=== PATIENT | male | born 2000 | race Two or more races ===

== ENCOUNTER 2025-02-25 23:44 | Inpatient (IN) | payer OTHER ==
[~2025-02-25] VITALS: Ht 190.5 cm; Wt 135.7 kg
[2025-02-26] VITALS (7 sets, daily range): BP systolic 110–120; BP diastolic 60–70; PULSE 60–70; RESP 15–19; TEMP 97.1–98.4; O2SAT 98–100
--- NOTE | 2025-02-26 00:16 | ED.PDOC ---
GI ASSESSMENT HPI Comments 24-year-old male who came to ER for abdominal pain. Patient has been having intermittent episodes of right upper quadrant abdominal pain days. Noted pain will radiate to the back and right shoulder, and associated with loss of appetite and nausea. Patient had a full meal earlier and patients RUQ pain worsened. Patient brought here for further evaluation and management. Patient has no history of abdominal surgeries. Chief Complaint: Abdominal Pain Time Seen by MD: 00:16 Reviewed Notes: Nurses Notes Allergies: Coded Allergies: NO KNOWN ALLERGIES (Unverified , 02/26/25) Information Source: Patient Mode of Arrival: EMS Timing: Days Duration: Intermittent Prehospital treatment: None Quality: Aching, Sharp Vomitus: None Stool: Normal Severity: Moderate Recent: None Recent Hx of: None Pain Location: RUQ Associated sign and symptoms: Nausea, Abdominal Pain Past Medical History PAST MEDICAL HISTORY: Denies Surgical History: Denies all surgeries Family History Family History: Reviewed,noncontributory to illness Social History Smoker: Non-Smoker Alcohol: Denies ETOH Use Drugs: Denies Drug Use Lives In: Other ([employer]) Constitutional: denies: chills, diaphoresis, fatigue, fever, malaise, sweats, weakness, others EENTM: denies: blurred vision, double vision, ear bleeding, ear discharge, ear drainage, ear pain, ear ringing, eye pain, eye redness, hearing loss, mouth pain, mouth swelling, nasal discharge, nose bleeding, nose congestion, nose pain, photophobia, tearing, throat pain, throat swelling, voice changes, others Respiratory: denies: cough, hemoptysis, orthopnea, SOB at rest, shortness of breath, SOB with excertion, stridor, wheezing, others Cardiovascular: denies: chest pain, dizzy spells, diaphoresis, Dyspnea on exertion, edema, irregular heart beat, left arm pain, lightheadedness, palpitations, PND, syncope, others Gastrointestinal: reports: abdominal pain, poor appetite; denies: abdomen distended, blood streaked bowels, constipated, diarrhea, dysphagia, difficulty swallowing, hematemesis, melena, nausea, poor fluid intake, rectal bleeding, rectal pain, vomiting, others Genitourinary: denies: burning, dysuria, flank pain, frequency, hematuria, incontinence, penile discharge, penile sore, pain, testicle pain, testicle swelling, urgency, others Neurological: denies: dizziness, fainting, headache, left sided numbness, left sided weakness, numbness, paresthesia, pre-existing deficit, right sided numbness, right sided weakness, seizure, speech problems, tingling, tremors, weakness, others Musculoskeletal: denies: back pain, gout, joint pain, joint swelling, muscle pain, muscle stiffness, neck pain, others Integumetry: denies: bruises, change in color, change in hair/nails, dryness, laceration, lesions, lumps, rash, wounds, others Allergic/Immunocompromised: denies: Difficulty Healing, Frequent Infections, Hives, Itching, others Hematologic/Lymphatic: denies: anemia, blood clots, easy bleeding, easy bruising, swollen glands, others Endocrine: denies: excessive hunger, excessive sweating, excessive thirst, excessive urination, flushing, intolerance to cold, intolerance to heat, unexplained weight gain, unexplained weight loss, others Psychiatric: denies: anxiety, bipolar disorder, depression, hopeless, panic disorder, schizophrenia, sleepless, suicidal, others Physical Exam General Appearance: Moderate Distress ( due to right upper quadrant pain concerns.), Normal HEENT: Normal ENT Inspection, Pharynx Normal, TMs Normal Neck: Full Range of Motion, Non-Tender, Normal, Normal Inspection Respiratory: Chest Non-Tender, Lungs Clear, No Accessory Muscle Use, No Respiratory Distress, Normal Breath Sounds Cardiovascular: No Edema, No JVD, No Murmur, No Gallop, Normal Peripheral Pulses, Regular Rate/Rhythm Breast Exam: Deferred Gastrointestinal: No Pulsatile Mass, Normal Bowel Sounds, RUQ, Soft, Tenderness ( Diffuse epigastric and right upper quadrant tenderness to palpation. No signs of trauma. No edema ecchymosis.) Genitalia: Deferred Pelvic: Deferred Rectal: Deferred Extremities: No calf tenderness, Normal capillary refill, Normal inspection, Normal range of motion, Non-tender, No pedal edema Musculoskeletal : Apperance: Normal Neurologic: Alert, No Motor Deficits, Normal Affect, Normal Mood, No Sensory Deficits Cerebellar Function: Normal Reflexes: Normal Skin: Dry, Normal Color, Warm Lymphatic: No Adenopathy Was a procedure done? Was a procedure done?: No GI differential Dx Differential Diagnosis: Appendicitis, Cholangitis, Cholecystitis, Constipation, Diverticular disease, Gastritis/PUD, Gastroenteritis, Pancreatitis, UTI, Urolithiasis X-Ray, Labs, Meds, VS Vital Signs Date Time Temp Pulse Resp B/P (MAP) Pulse Ox O2 Delivery O2 Flow Rate FiO2 02/26/25 02:00 60 18 115/62 (79) 97 02/26/25 00:21 61 19 98 Room Air* 0 21 21 02/26/25 00:17 98.1 61 19 110/68 (82) 97 98.1 02/25/25 23:44 98.0 75 18 106/70 (82) 97 98.0 Lab Test 02/26/25 00:10 Range/Units White Blood Count 7.3 4.4-10.8 10^3/uL Red Blood Count 4.53 4.5-5.90 10^6/uL Hemoglobin 14.6 13.5-17.5 g/dL Hematocrit 42.9 41.0-53.0 % Mean Corpuscular Volume 94.7 80.0-100.0 fL Mean Corpuscular Hemoglobin 32.2 H 28.0-32.0 pg Mean Corpuscular Hemoglobin Concent 34.0 32.0-36.0 g/dL Red Cell Distribution Width 13.5 11.8-14.3 % Platelet Count 186 140-450 10^3/uL Mean Platelet Volume 7.5 6.9-10.8 fL Neutrophils (%) (Auto) 66.4 37.0-80.0 % Lymphocytes (%) (Auto) 19.7 10.0-50.0 % Monocytes (%) (Auto) 11.9 0.0-12.0 % Eosinophils (%) (Auto) 1.7 0.0-7.0 % Basophils (%) (Auto) 0.3 0.0-2.0 % Neutrophils # (Auto) 4.8 1.6-8.6 10 ^3/uL Lymphocytes # (Auto) 1.4 0.4-5.4 10 ^3/uL Monocytes # (Auto) 0.9 0-1.3 10 ^3/uL Eosinophils # (Auto) 0.1 0-0.8 10 ^3/uL Basophils # (Auto) 0 0-0.2 10 ^3/uL Nucleated Red Blood Cells 0.0 % Sodium Level 137 136-145 mmol/L Potassium Level 3.9 3.5-5.1 mmol/L Chloride Level 105 98-107 mmol/L Carbon Dioxide Level 24 20-31 mmol/L Anion Gap 8 5-15 Blood Urea Nitrogen 15 9-23 mg/dL Creatinine 1.43 H 0.700-1.30 mg/dL Glomerular Filtration Rate Calc 71 >90 mL/min BUN/Creatinine Ratio 10.5 10.0-20.0 Serum Glucose 91 74-106 mg/dL Calcium Level 9.7 8.7-10.4 mg/dL Total Bilirubin 0.7 0.2-1.0 mg/dL Aspartate Amino Transferase (AST) 15 13-40 U/L Alanine Aminotransferase (ALT) 10 7-40 U/L Alkaline Phosphatase 74 46-116 U/L C-Reactive Protein High Sensitivity 5.54 H <1.0 mg/dL Total Protein 8.2 5.7-8.2 g/dL Albumin 4.9 H 3.2-4.8 g/dL Lipase 34 12-53 U/L Current Medications Medications (Trade) Dose Ordered Sig/Shaan Route Start Time Stop Time Status Last Admin Ketorolac Tromethamine (Toradol Injection) 30 mg ONCE ONCE IM 02/26/25 02:00 02/26/25 02:01 DC 02/26/25 02:08 X-Ray, Labs, Meds, VS Comment All studies performed the ED were evaluated by me personally. Laboratories studies, while unremarkable for WBC concerns, did have a significantly elevated C-reactive protein. Imaging studies confirmed a sludge in gallbladder as well as hepatomegaly. I am concerned this patient may develop a cholecystitis and therefore, patient will be admitted for continued evaluation of his gallbladder concerns. Urine was pending at time of this note. Patient care has been transferred to Dr. Asencio. He will evaluate urine once returned. Time of 1ST Reevaluation: 02:52 Reevaluation 1ST: Improved Consultation: PCP Patient Education/Counseling: Diagnosis, Treatment Family Education/Counseling: Diagnosis, Treatment, No Family Present Departure 1 Departure Time of Disposition: 02:53 Impression: Primary Impression: Biliary colic Additional Impressions: Hepatomegaly Elevated C-reactive protein (CRP) Disposition: ADMITTED INPATIENT Condition: Stable Discharged With: Self Critical Care Note Critical Care Time?: No Stability Stability form required: No Heart Score Heart Score: Heart Score Response (Comments) Value History N/A 0 EKG N/A 0 Age N/A 0 Risk Factors N/A 0 Troponin N/A 0 Total 0 I personally scribed for AMELIA CROCKETT PAC ([email or web address]) on 02/26/25 at 00:16. Electronically submitted by Butch Sheriff ([facility]). I personally scribed for AMELIA CROCKETT PAC ([facility] on 02/26/25 at 00:24. Electronically submitted by Butch Sheriff ([email or web address]). AMELIA CROCKETT PAC Feb 26, 2025 00:16
[2025-02-26 00:27] LABS: Basophils # (auto) 0 10 ^3/uL (0-0.2); Basophils % (auto) 0.3 % (0.0-2.0); Eosinophils # (auto) 0.1 10 ^3/uL (0-0.8); Eosinophils % (auto) 1.7 % (0.0-7.0); Hematocrit 42.9 % (41.0-53.0); Hemoglobin 14.6 g/dL (13.5-17.5); Lymphocytes # (auto) 1.4 10 ^3/uL (0.4-5.4); Lymphocytes % (auto) 19.7 % (10.0-50.0); Mean Corpuscular Hemoglobin 32.2 pg (28.0-32.0); Mean Corpuscular Volume 94.7 fL (80.0-100.0); Monocytes # (auto) 0.9 10 ^3/uL (0-1.3); Monocytes % (auto) 11.9 % (0.0-12.0); Neutrophils # (auto) 4.8 10 ^3/uL (1.6-8.6); Neutrophils % (auto) 66.4 % (37.0-80.0); Platelet Count (auto) 186 10^3/uL (140-450); Red Blood Cells 4.53 10^6/uL (4.5-5.90); Red Cell Distribution Width 13.5 % (11.8-14.3); White Blood Cell 7.3 10^3/uL (4.4-10.8)
[2025-02-26 00:45] LABS: Alanine Aminotransferase 10 U/L (7-40); Alkaline Phosphatase 74 U/L (46-116); Anion Gap 8 (5-15); Aspartate Aminotransferase 15 U/L (13-40); BUN/Creatinine Ratio 10.5 (10.0-20.0); Blood Urea Nitrogen 15 mg/dL (9-23); Calcium 9.7 mg/dL (8.7-10.4); Carbon Dioxide 24 mmol/L (20-31); Chloride 105 mmol/L (98-107); Glucose 91 mg/dL (74-106); Lipase 34 U/L (12-53); Potassium 3.9 mmol/L (3.5-5.1); Sodium 137 mmol/L (136-145); Total Protein 8.2 g/dL (5.7-8.2)
[2025-02-26 00:46] LABS: Bilirubin, Total 0.7 mg/dL (0.2-1.0)
[2025-02-26 00:49] LABS: Albumin 4.9 g/dL (3.2-4.8)
--- NOTE | 2025-02-26 01:16 | DVH ---
ABDOMINAL ULTRASOUND CLINICAL HISTORY: Right upper quadrant TECHNIQUE: Multiple grayscale and color Doppler ultrasound images were obtained of the abdomen. WID: COMPARISON: None FINDINGS: Liver and Biliary System: Homogeneous echotexture, hepatomegaly measuring 19.5 cm. No focal hepati c observations. No intrahepatic bile duct dilatation. The common duct measures 0.4 cm at the jeff hepatis. The gallbladder is normal caliber containing gallbladder sludge. Pancreas: Partially obscured due to overlying bowel gas. Kidneys: The right kidney is 10.4 cm . No hydronephrosis, increased echogenicity, shadowing stone, or focal lesion. IMPRESSION: 1. Gallbladder sludge. No acute cholecystitis or biliary ductal dilatation. 2. Hepatomegaly.
[2025-02-26 01:58] LABS: CRP High Sensitivity 5.54 mg/dL (<1.0)
[2025-02-26] MEDS: KETOROLAC TROMETH 60MG/2ML VIAL IM ONE (02:08)
[2025-02-26] MEDS ORDERED: ONDANSETRON HCL 4 MG/2 ML VIAL IV PRN (04:30)
--- NOTE | 2025-02-26 04:48 | DVHHP2 ---
History of Present Illness Reason for Visit: Abdominal pain History of Present Illness 24-year-old male presents for evaluation of abdominal pain. Patient endorses a five day history of right upper quadrant abdominal pain sharp in nature. He states that for the past two days the pain has been intermittent with associated nausea. He states his symptoms become worse after eating. He states the pain does not radiate. No fever or chills. No other acute complaints reported. Past Medical History Denies Past Surgical History Denies Family History Noncontributory Smoke: No ALCOHOL: none Drugs: None Lives: Other ( base) Review of Systems Review of Systems Review of systems are currently negative otherwise addressed in HPI. Allergies: Coded Allergies: NO KNOWN ALLERGIES (Unverified , 02/26/25) Exam Vital Signs Vital Signs Date Time Temp Pulse Resp B/P (MAP) Pulse Ox O2 Delivery O2 Flow Rate FiO2 02/26/25 04:08 58 20 109/59 (76) 98 02/26/25 00:21 Room Air* 0 21 21 02/26/25 00:17 98.1 98.1 Exam Gen: 24-year-old male in mild distress Skin: Warm, dry, normal color and texture, no rash. HEENT: Normocephalic atraumatic, mucous membranes moist and pink. Neck: Cervical and supraclavicular nodes normal without enlargement, trachea is midline, thyroid gland is normal without masses. Pulmonary: Clear to auscultation and percussion bilaterally. Cardiac: Regular rate and rhythm. No murmur Abdomen: Soft, nontender, nondistended, bowel sounds present all 4 quadrants, no guarding, no rigidity, no organomegaly. Extremities: No cyanosis, clubbing, no edema Neuro: Cranial nerves II through XII grossly intact, normal affect and speech, no focal motor deficits. Labs/Xrays ORDERING PHYSICIAN: AMELIA CROCKETT PAC PROCEDURE(s): ABDL - ABDOMEN LIMITED REASON: Right upper quadrant ORDER NUMBER(s): [id number], ACCESSION NUMBER(s): [id number] ABDOMINAL ULTRASOUND CLINICAL HISTORY: Right upper quadrant TECHNIQUE: Multiple grayscale and color Doppler ultrasound images were obtained of the abdomen. WID: COMPARISON: None FINDINGS: Liver and Biliary System: Homogeneous echotexture, hepatomegaly measuring 19.5 cm. No focal hepatic observations. No intrahepatic bile duct dilatation. The common duct measures 0.4 cm at the jeff hepatis. The gallbladder is normal caliber containing gallbladder sludge. Pancreas: Partially obscured due to overlying bowel gas. Kidneys: The right kidney is 10.4 cm . No hydronephrosis, increased echogenicity, shadowing stone, or focal lesion. IMPRESSION: 1. Gallbladder sludge. No acute cholecystitis or biliary ductal dilatation. 2. Hepatomegaly. Labs Test 02/26/25 00:10 Range/Units White Blood Count 7.3 4.4-10.8 10^3/uL Red Blood Count 4.53 4.5-5.90 10^6/uL Hemoglobin 14.6 13.5-17.5 g/dL Hematocrit 42.9 41.0-53.0 % Mean Corpuscular Volume 94.7 80.0-100.0 fL Mean Corpuscular Hemoglobin 32.2 H 28.0-32.0 pg Mean Corpuscular Hemoglobin Concent 34.0 32.0-36.0 g/dL Red Cell Distribution Width 13.5 11.8-14.3 % Platelet Count 186 140-450 10^3/uL Mean Platelet Volume 7.5 6.9-10.8 fL Neutrophils (%) (Auto) 66.4 37.0-80.0 % Lymphocytes (%) (Auto) 19.7 10.0-50.0 % Monocytes (%) (Auto) 11.9 0.0-12.0 % Eosinophils (%) (Auto) 1.7 0.0-7.0 % Basophils (%) (Auto) 0.3 0.0-2.0 % Neutrophils # (Auto) 4.8 1.6-8.6 10 ^3/uL Lymphocytes # (Auto) 1.4 0.4-5.4 10 ^3/uL Monocytes # (Auto) 0.9 0-1.3 10 ^3/uL Eosinophils # (Auto) 0.1 0-0.8 10 ^3/uL Basophils # (Auto) 0 0-0.2 10 ^3/uL Nucleated Red Blood Cells 0.0 % Sodium Level 137 136-145 mmol/L Potassium Level 3.9 3.5-5.1 mmol/L Chloride Level 105 98-107 mmol/L Carbon Dioxide Level 24 20-31 mmol/L Anion Gap 8 5-15 Blood Urea Nitrogen 15 9-23 mg/dL Creatinine 1.43 H 0.700-1.30 mg/dL Glomerular Filtration Rate Calc 71 >90 mL/min BUN/Creatinine Ratio 10.5 10.0-20.0 Serum Glucose 91 74-106 mg/dL Calcium Level 9.7 8.7-10.4 mg/dL Total Bilirubin 0.7 0.2-1.0 mg/dL Aspartate Amino Transferase (AST) 15 13-40 U/L Alanine Aminotransferase (ALT) 10 7-40 U/L Alkaline Phosphatase 74 46-116 U/L C-Reactive Protein High Sensitivity 5.54 H <1.0 mg/dL Total Protein 8.2 5.7-8.2 g/dL Albumin 4.9 H 3.2-4.8 g/dL Lipase 34 12-53 U/L Assessment/Plan Assessment/Plan Assessment Acute abdominal pain Rule out acute cholecystitis Acute kidney injury Plan Admit the patient to [facility] to the hospitalist HIDA scan pending Clear liquid diet Pain management We will consult with Surgical team pending HIDA scan results. Continue treatment per orders. Plan discussed with: Patient My Orders Orders - DELFINO MURRIETA Procedure Category Date Status Time Nm Hida Scan NM 02/26/25 Logged 04:22 Sodium Chloride 0.9% PHA 02/26/25 In Process 04:30 Clear Liq Diet DIET 02/26/25 Transmitted Breakfast Admit ADMIT 02/26/25 Transmitted 04:22 Hydrocodone-Acet PHA 02/26/25 In Process 5/325mg Tab ([place] 04:30 Ondansetron Hcl PHA 02/26/25 In Process (Zofran) 04:30 Complete Blood Count LAB 02/27/25 Verified 04:00 Comprehensive LAB 02/27/25 Verified Metabolic Panel 04:00 Condition: Stable KRISTOFER 02/26/25 In Process 04:22 Acetaminophen Tablet PHA 02/26/25 In Process (Tylenol Tablet) 04:30 Bedrest With Bathroom KRISTOFER 02/26/25 In Process Privileg 04:22 Morphine Sulfate PHA 02/26/25 In Process Injection 04:30 Date of Service: Feb 26, 2025 Billing Provider: DELFINO MURRIETA Common Visit Codes: [id number] INP/OBS CARE (MOD) DELFINO MURRIETA AGACNP Feb 26, 2025 04:48
[2025-02-26] MEDS: SODIUM CHLORIDE 0.9% 1,000 ML IV ONE (04:53)
[2025-02-26] MEDS: HYDROcodone-ACET 5/325MG TAB PO PRN (06:53)
--- NOTE | 2025-02-26 08:58 | DVH ---
CLINICAL INFORMATION: Rule out cholecystitis. TECHNIQUE: 4.3 mCi of Choletec were administered intravenously. Images of the upper abdomen were ob tained at 2 minute intervals up to a total time of 60 minutes. Delayed lateral image obtained at 65 m inutes. COMPARISON: Ultrasound dated 02/26/2025 FINDINGS: There is prompt gallbladder visualization. There is prompt excretion of activity from the biliary ductal system into the small bowel. There is no evidence of acute cholecystitis. IMPRESSION: No scintigraphic evidence of acute cholecystitis.
[2025-02-26 09:36] LABS: Urine Bacteria None Seen /hpf (None Seen)
[2025-02-26 09:40] LABS: LDL Cholesterol 70 mg/dL (< 100); Triglycerides 74 mg/dL (< 150)
[2025-02-26 09:42] LABS: Cholesterol 162 mg/dL (< 200); HDL Cholesterol 70 mg/dL (40-59)
[2025-02-26 09:45] LABS: Urine Blood Negative /uL (Negative); Urine Clarity Clear (Clear); Urine Color Yellow (Yellow); Urine Mucus FEW (None Seen); Urine Protein, UAD TRACE (Negative); Urine Specific Gravity 1.027 (1.001-1.035); Urine Squamous Epithelial Cell None Seen /hpf (<5); Urine Urobilinogen 4 mg/dL (Negative); Urine WBC 1 /HPF (0-3); Urine pH 6.5 (5.0-9.0)
[2025-02-26 09:55] LABS: Amphetamine Screen, Urine Neg (NEGATIVE)
[2025-02-26 09:56] LABS: Barbiturate Scree,Urine Neg (NEGATIVE); Benzodiazephine Screen, Urine Neg (NEGATIVE); Cannabinoid Screen, Urine Neg (NEGATIVE); Cocaine Screen, Urine Neg (NEGATIVE); Opiate Scree,Urine Neg (NEGATIVE); Phencyclidine Screen, Urine Neg (NEGATIVE)
--- NOTE | 2025-02-26 13:42 | DVHINCON2 ---
Date of service: Feb 26, 2025 Reason for Consultation right upper quadrant pain History of Present Illness History Source: Patient, MD Notes Exam Limitations: No limitations HPI 24 year old male presented to the ER for evaluation of abdominal pain associated with nausea. Patient states pain started 5 days ago to his right upper quadrant with radiation to his back. He had a similar episode a few months ago and only lasted a few hours. He states since he had no relief and pain became worse he decided to be evaluated in the ER. Onset/Duration of Abd/Flank Pa: Sudden-onset Location of Abdominal Onset: RUQ Abdominal Pain Radiation: Back Past Medical History Cardiac: No pertinent Hx Pulmonary: No pertinent Hx Central Nervous System: No pertinent Hx GI: No pertinent Hx Hemotology/Oncology: No pertinent Hx Hepatobiliary: No pertinent Hx Psychiatric: No pertinent Hx Musculoskeletal: No pertinent Hx Rheumotologic: No pertinent Hx Infectious Disease: No peritnent Hx ENT: No pertinent Hx Renal/: No pertinent Hx Endocrine: No pertinent Hx Dermatology: No pertinent Hx Past Surgical History: No pertinent Hx Patient Family History: Patient reports no known family medical history. Smoker: No Hx (Negative), Other (vape) Alocohol: Occassional Drugs: None Lives with: Other ([employer]) Review of Systems Constitutional: No symptom reported Ears, Nose, & Throat: No symptom reported Eyes: No symptom reported Pulmonary/Respiratory: No symptom reported Cardiovascular: No symptom reported Gastrointestinal: Nausea, Abdominal Pain Genitourinary: No symptom reported Musculoskeletal: No symptom reported Skin: No symptom reported Psychiatric: No symptom reported Endocrine: No symptom reported Hemotologic/Lymphatic: No symptom reported H&P Exam Vital Signs Vital Signs Date Time Temp Pulse Resp B/P (MAP) Pulse Ox O2 Delivery O2 Flow Rate FiO2 02/26/25 13:01 97.1 60 15 116/70 (85) 100 97.1 02/26/25 08:54 Room Air* 0 21 General Appeara: Well developed, Well nourished, Normal Appearance Head Exam: Normal inspection Neck Exam: Normal inspection Eye Exam: bilateral eye Normal inspection Nasal Exam: Normal inspection Pulmonary/Respiratory: Normal inspection Cardiovascular/Chest: Normal inspection, Regular rate, Normal Rhythm Abdominal Exam: Soft, Other (RUQ tender) [employer] Exam: Normal hearing, Normal speech Neuro/Mental St: Alert, Oriented Appearance: Appropriate appearance Eye contact/ Speech: Cooperative, Good eye contact, Normal speech Thoughts/Psych: Normal thought pattern Skin Exam: Normal inspection, Normal color, Warm/dry Labs/Xrays Labs Test 02/26/25 09:00 02/26/25 00:10 Range/Units Urine Color Yellow Yellow Urine Clarity Clear Clear Urine pH 6.5 5.0-9.0 Urine Specific [place] 1.027 1.001-1.035 Urine Protein Trace H Negative Urine Ketones Negative Negative Urine Blood Negative Negative /uL Urine Nitrite Negative Negative Urine Bilirubin Negative Negative Urine Urobilinogen 4 H Negative mg/dL Urine Leukocyte Esterase Negative Negative /uL Urine RBC 1 0 - 3 /hpf Urine Microscopic WBC 1 0-3 /HPF Urine Squamous Epithelial Cells None seen <5 /hpf Urine Bacteria None seen None Seen /hpf Urine Mucus Few None Seen Urine Glucose Normal Normal mg/dL Urine Opiates Screen Neg NEGATIVE Urine Fentanyl Screen Neg NEGATIVE Urine Barbiturates Screen Neg NEGATIVE Urine Phencyclidine Screen Neg NEGATIVE Urine Amphetamines Screen Neg NEGATIVE Urine Benzodiazepines Screen Neg NEGATIVE Urine Cocaine Screen Neg NEGATIVE Urine Cannabinoids Screen Neg NEGATIVE White Blood Count 7.3 4.4-10.8 10^3/uL Red Blood Count 4.53 4.5-5.90 10^6/uL Hemoglobin 14.6 13.5-17.5 g/dL Hematocrit 42.9 41.0-53.0 % Mean Corpuscular Volume 94.7 80.0-100.0 fL Mean Corpuscular Hemoglobin 32.2 H 28.0-32.0 pg Mean Corpuscular Hemoglobin Concent 34.0 32.0-36.0 g/dL Red Cell Distribution Width 13.5 11.8-14.3 % Platelet Count 186 140-450 10^3/uL Mean Platelet Volume 7.5 6.9-10.8 fL Neutrophils (%) (Auto) 66.4 37.0-80.0 % Lymphocytes (%) (Auto) 19.7 10.0-50.0 % Monocytes (%) (Auto) 11.9 0.0-12.0 % Eosinophils (%) (Auto) 1.7 0.0-7.0 % Basophils (%) (Auto) 0.3 0.0-2.0 % Neutrophils # (Auto) 4.8 1.6-8.6 10 ^3/uL Lymphocytes # (Auto) 1.4 0.4-5.4 10 ^3/uL Monocytes # (Auto) 0.9 0-1.3 10 ^3/uL Eosinophils # (Auto) 0.1 0-0.8 10 ^3/uL Basophils # (Auto) 0 0-0.2 10 ^3/uL Nucleated Red Blood Cells 0.0 % Sodium Level 137 136-145 mmol/L Potassium Level 3.9 3.5-5.1 mmol/L Chloride Level 105 98-107 mmol/L Carbon Dioxide Level 24 20-31 mmol/L Anion Gap 8 5-15 Blood Urea Nitrogen 15 9-23 mg/dL Creatinine 1.43 H 0.700-1.30 mg/dL Glomerular Filtration Rate Calc 71 >90 mL/min BUN/Creatinine Ratio 10.5 10.0-20.0 Serum Glucose 91 74-106 mg/dL Calcium Level 9.7 8.7-10.4 mg/dL Total Bilirubin 0.7 0.2-1.0 mg/dL Aspartate Amino Transferase (AST) 15 13-40 U/L Alanine Aminotransferase (ALT) 10 7-40 U/L Alkaline Phosphatase 74 46-116 U/L C-Reactive Protein High Sensitivity 5.54 H <1.0 mg/dL Total Protein 8.2 5.7-8.2 g/dL Albumin 4.9 H 3.2-4.8 g/dL Triglycerides Level 74 < 150 mg/dL Cholesterol Level 162 < 200 mg/dL LDL Cholesterol 70 < 100 mg/dL HDL Cholesterol 70 H 40-59 mg/dL Lipase 34 12-53 U/L Vitamin D 25-Hydroxy 9.6 L 30.0-100 ng/mL Assessment/Plan Problem List: (1) Right upper quadrant abdominal pain (2) Gallbladder sludge (3) Biliary colic Plan patient complaint of RUQ pain with radiation to back , when pain becomes severe it makes him nauseous similar episode a few months ago positive Crowder sign Plan: Laparoscopic possibly open cholecystectomy, tomorrow am explained operation risks and complications in detail all questions answered Plan discussed with: Patient, Other (Dr. Clifford) Visit Coding Surgery Date of Service if different f: Feb 26, 2025 Billing Provider: RAFFAELE CLIFFORD MD Surgery Visit Codes: 05889 - INP CONSULT <80 MIN LAMBERT VILLANUEVA GLASS C[employer] SUPERVISOR Feb 26, 2025 13:42
[2025-02-26 13:58] LABS: INR 1.03 (0.9-1.15); Partial Thromboplastin Time 28.6 SEC (24.5-34.5); Prothrombin Time 10.9 sec (9.3-11.8)
[2025-02-26] MEDS ORDERED: cefTRIAXone 1GM/50ML D5W 50 ML IV SCH (14:15)
--- NOTE | 2025-02-26 14:24 | DVHPNRES ---
Progress Note Date Seen: Feb 26, 2025 Resident Creating Document: SACHA JENKINS RESIDENT Has the PT tested + for MRSA If YES, has PT been informed?: No Medical Necessity Reason Pt with a Central, PICC or Fol: No Subjective Review of Systems This is a 24-year-old male with no significant past medical history of relevance. The patient presented to the ED due to acute abdominal tenderness localized in the right upper quadrant. Patient describes that since four days ago he started having a right upper quadrant tenderness rated as a 4/10 on the pain scale described as sharp in nature but that the next day worsened to a 7/10 prompting him to come to the ER. Patient denied any nausea or vomiting at that time but did stated that the pain got worse after eating meals. Patient denied alcohol, smoking or drug history. Patient states that the pain is localized in the right upper quadrant and does not radiate to any other quadrant. Patient denied fever/chills, chest pain, shortness of breath or any other symptoms at that time. Initial labs CBC and BNP were grossly unremarkable except for creatinine which was slightly elevated at 1.43 and BUN was 15. Abdominal ultrasound showed gallbladder sludge but no acute cholecystitis or biliary ductal dilation. HIDA scan was ordered which showed no evidence of acute cholecystitis. Patient was admitted for further assessment and management of cholelithiasis. Patient seen and examined at bedside. Patient is alert and oriented in person, place and time. Patient reports right upper quadrant tenderness to palpation. Upon my examination there is positive Crowder's sign. Negative McBurney sign and there is no tenderness in any other quadrant of the abdomen at this time. Patient denies fever/chills, chest pain, shortness of breath, nausea or vomiting or any other symptoms at this time. Surgery was consulted despite HIDA scan showing no evidence of acute cholecystitis since clinically patient still having right upper quadrant tenderness that worse after meals. Surgery assessed the patient and scheduled the patient for cholecystectomy tomorrow a.m.. Meanwhile we will keep the patient on IV ceftriaxone. ROS Constitutional: Denies weight loss, fever and chills. HEENT: Denies changes in vision and hearing. Respiratory: Denies shortness of breath and cough Cardiovascular: Denies chest discomfort or palpitations GI: Reports moderate to severe right upper quadrant tenderness to palpation of the abdomen. Denies nausea or vomiting : Denies dysuria and urinary frequency. Musculoskeletal: Denies myalgias and joint pain Skin: Denies rash and pruritus. Neurological: Denies dizziness, headache, vision or hearing problems Objective vital signs Vital Sign Date Time Temp Pulse Resp B/P (MAP) Pulse Ox O2 Delivery O2 Flow Rate FiO2 02/26/25 13:01 97.1 60 15 116/70 (85) 100 97.1 02/26/25 08:54 Room Air* 0 21 medications Current Medications Medications Dose Ordered Sig/Shaan Route Start Time Stop Time Status Last Admin Dose Admin Acetaminophen/ Hydrocodone Bitart 1 tab Q4HP PRN PO 02/26/25 04:30 02/26/25 06:53 1 TAB Ondansetron HCl 4 mg Q4HP PRN IV 02/26/25 04:30 Acetaminophen 650 mg Q6HP PRN PO 02/26/25 04:30 Morphine Sulfate 2 mg Q6HPRN PRN IV 02/26/25 04:30 Ceftriaxone Sodium 50 ml @ 100 mls/hr DAILY@09 IV 02/26/25 14:15 UNV Examination Physical Examination General: Patient alert and oriented in person, place and time. Patient following commands. HEENT: Normocephalic, atraumatic, moist mucous membranes Respiratory/pulmonary: Clear lungs bilaterally, no associated crackles or wheezes. Cardiovascular: Normal heart sounds S1 and S2 with no associated murmurs Abdomen: Abdomen nondistended, there is tenderness at the right upper quadrant of the abdomen with positive Crowder sign. No masses palpated at this time. Extremities: There is no peripheral edema present at the lower extremities. Peripheral Pulses: 3+ Radial (R). 3+ Radial (L). 3+ Dorsalis pedis (R). 3+ Dorsalis pedis(L) Skin: No rashes or pruritus, there is no sacral edema present at this time. Neurological: Intact cranial nerves with no focal neurologic deficits laboratory and microbiology Laboratory Tests 02/26/25 00:10 Test 02/26/25 00:10 Range/Units Serum Glucose 91 74-106 mg/dL Problem List/Assessment/Plan Problem List/Assessment/Plan Assessment/plan Acute abdominal pain located in the right upper quadrant likely due to cholelithiasis Possible Acute cholecystitis -abdominal ultrasound showed gallbladder sludge but no acute cholecystitis or biliary ductal dilation -HIDA scan showed no evidence of acute cholecystitis -start IV ceftriaxone -continue [place]/morphine for pain modulation -continue NS 0.9% at 100 cc/hour -consulted surgery despite imaging studies since the patient clinically tejeda is having positive Crowder's sign and worsening of pain after meals. -scheduled for cholecystectomy tomorrow a.m. SAMANTHA likely due to vasomotor nephropathy -initial creatinine 1.43 and BUN 15 -continue IV fluids at 100 cc/hour -monitor kidney function Vitamin-D deficiency -vitamin-D levels were very low at nine -start vitamin-D 04139 units weekly Goals of care discussed with the patient at bedside for >25min, FULL CODE Plan discussed with Dr. Coleman Plan discussed with: Patient My Orders My Orders Orders - SACHA JENKINS Procedure Category Date Status Time Communication Order ORDERS 02/26/25 Transmitted 09:14 Ceftriaxone 1gm/50ml PHA 02/26/25 Logged D5w (Rocephin) 14:15 Date of Service: Feb 26, 2025 Billing Provider: RANDI COLEMAN MD Common Visit Codes: [id number] INP/OBS CARE(HIGH) Secondary Visit Codes: [id number] CARE PLAN 30 MINUTES SACHA JENKINS Feb 26, 2025 14:24 RANDI COLEMAN MD Feb 26, 2025 16:40
[2025-02-26] MEDS: cefTRIAXone 1GM/50ML D5W 50 ML IV ONE (15:47)
[2025-02-26] MEDS: MORPHINE SULFATE INJ 2 MG/ml SYRG IV PRN (15:50)
[2025-02-26] MEDS: ERGOCALCIFEROL 50,000 UNIT(1.25MG) CAP PO SCH (15:50)
[2025-02-27] VITALS (8 sets, daily range): BP systolic 104–122; BP diastolic 51–72; PULSE 56–92; RESP 18–21; TEMP 97.3–98.1; O2SAT 95–100
[2025-02-27] MEDS: ceFAZolin 2 GM/D5W50ml 50 ML IV ONE (06:20)
[2025-02-27] MEDS: ACETAMINOPHEN IV 1000 MG/100ML (10MG/ML) IV ONE (06:50)
[2025-02-27] MEDS: CELECOXIB 100 MG CAP ONE (06:50)
[2025-02-27] MEDS: GABAPENTIN 300 MG CAP PO ONE (06:50)
[2025-02-27] MEDS: BUPIVACAINE 0.25% INJ 50ML VIAL ONE (06:55)
[2025-02-27] MEDS: LIDOCAINE W/ EPINEPHRINE 1% 20ML VIAL ONE (06:55)
[2025-02-27] MEDS: ACETAMINOPHEN IV 100 ML IV ONE (06:56)
[2025-02-27] MEDS: GABAPENTIN 300 MG CAP ONE (06:56)
[2025-02-27] MEDS: CELECOXIB 100 MG CAP PO ONE (07:00)
[2025-02-27] MEDS ORDERED: SUGAMMADEX 200mg/2ml Vial (100MG/ML) IV ONE (07:02)
[2025-02-27] MEDS ORDERED: PROPOFOL 10 MG/ML 20 ML IV ONE (07:02)
[2025-02-27] MEDS ORDERED: DexAMETHasone SOD PHOS 10MG/1ML VIAL INJ ONE (07:02)
[2025-02-27] MEDS ORDERED: GLYCOPYRROLATE 0.2 MG/ML 1ML VIAL ONE (07:02)
[2025-02-27] MEDS ORDERED: LIDOCAINE 2% (LOCAL ANESTH.) PF 5ml SDV ONE (07:02)
[2025-02-27] MEDS ORDERED: KETOROLAC TROMETH 30 MG/ML 1ML VIAL ONE (07:02)
[2025-02-27] MEDS ORDERED: ONDANSETRON HCL 4 MG/2 ML VIAL ONE (07:02)
[2025-02-27] MEDS ORDERED: ROCURONIUM 10MG/ML 10ML VIAL IV ONE (07:02)
[2025-02-27] MEDS ORDERED: LIDOCAINE HCL 2% TOP JELLY 5ML TOP ONE (07:02)
[2025-02-27] MEDS ORDERED: KETAMINE 50mg/ML 1ml syringe ONE (07:04)
[2025-02-27] MEDS ORDERED: fentaNYL CITRATE 100 MCG/2 ML VL ONE (07:05)
[2025-02-27] MEDS ORDERED: ceFAZolin 1GM VL ONE (07:20)
[2025-02-27] MEDS ORDERED: ePHEDrine SULFATE 50 MG/ML AMP ONE (07:40)
[2025-02-27] MEDS ORDERED: ONDANSETRON HCL 4 MG/2 ML VIAL IV PRN ×2 (08:30→08:45)
[2025-02-27] MEDS: D5W/SOD CHL 0.45%/KCL 20MEQ 1,000 ML IV SCH (08:30)
[2025-02-27] MEDS ORDERED: MORPHINE SULFATE INJ 2 MG/ml SYRG IV PRN (08:30)
[2025-02-27] MEDS ORDERED: fentaNYL CITRATE 100 MCG/2 ML VL IV PRN (08:45)
[2025-02-27] MEDS ORDERED: ePHEDrine SULFATE 50 MG/ML AMP IV PRN (08:45)
[2025-02-27] MEDS: oxyCODONE HCL 5MG TAB PO ONE (08:45)
[2025-02-27] MEDS ORDERED: hydrALAZINE HCL 20 MG/ML VL IV PRN (08:45)
[2025-02-27] MEDS ORDERED: NALOXONE HCL 0.4 MG/ML VIAL IV PRN (08:45)
[2025-02-27] MEDS ORDERED: FLUMAZENIL 0.1 MG/ML INJ 10ML MDV IV PRN (08:45)
--- NOTE | 2025-02-27 08:55 | DVHOP ---
DATE OF SURGERY: 02/27/2025 PREOPERATIVE DIAGNOSES: Cholelithiasis, chronic cholecystitis and biliary colic. POSTOPERATIVE DIAGNOSES: Cholelithiasis, chronic cholecystitis and biliary colic. SURGEON: Osmin Clifford MD. TYPESETTER APPRENTICE: Lawrence Barlow. ANESTHESIA: General endotracheal. PROCEDURE: Laparoscopy, laparoscopic cholecystectomy. DESCRIPTION OF PROCEDURE: Under general endotracheal anesthesia, the patient's skin was prepped and draped. A supraumbilical incision was made and a Veress needle inserted into the peritoneal cavity by the hanging drop technique in order to establish pneumoperitoneum to 15 mmHg of pressure by insufflation with carbon dioxide. With the abdomen fully distended, the needle was removed and replaced with a 5 mm trocar port through which a 0-degree viewing laparoscope was inserted. Under direct vision, an additional 5 and 10 mm ports were inserted through the abdominal wall at the anterior axillary line at the right flank of the patient and the subxiphoid midline skin respectively. Instrumentation was then introduced. Laparoscopy was performed revealing no obvious unexpected pathology. The gallbladder was placed on tension. The cystic duct and cystic artery were meticulously dissected. They were covered by extremely thick peritoneum with evidence of past inflammation. The cystic duct and cystic artery were skeletonized and traced into the hepaticocystic triangle system to minimize the potential for inadvertent injury to the common bile duct. The cystic duct and cystic artery were then divided between metallic clips and gallbladder resected from its liver bed by electrocautery and traction. The subhepatic space was profusely irrigated. Irrigant was aspirated. Hemostasis was meticulously accomplished. At the termination of the procedure, there was no evidence of bleeding from either the cholecystectomy site or from the port sites. Instrumentation was withdrawn. The pneumoperitoneum was evacuated. Instrumentation was withdrawn. The wounds reapproximated using Monocryl sutures, Dermabond glue and Steri-Strips. The patient remained stable throughout the procedure, left the operating room following an accurate needle and sponge count. His mother, Leonie, was thoroughly informed at [phone]. MD BRIDGETTE Colmenares/ZAKI TID: [id number] RECEIPT: [id number]
[2025-02-27] MEDS: HYDROmorphone HCL 2 MG/ML VL/or syr IV PRN (09:00)
[2025-02-27] MEDS: PANTOPRAZOLE 40 MG/10 ML VIAL INJ IV SCH (10:28)
[2025-02-27] MEDS: cefTRIAXone 1GM/50ML D5W 50 ML IV SCH (10:29)
--- NOTE | 2025-02-27 13:31 | DVHPN2 ---
Subjective The patient is seen and examined at bedside. Complain of pain. Reviewed: Care Plan, H&P, Labs, Medications, Previous Orders, Radiology Changes from previous H/P or p: No Changes General: Per HPI Objective Vitals Vital Signs Date Time Temp Pulse Resp B/P (MAP) Pulse Ox O2 Delivery O2 Flow Rate FiO2 02/27/25 09:50 98.1 56 18 122/72 (89) 95 98.1 02/27/25 09:39 Room Air* 0 21 Intake/Output Intake and Output 02/27/25 07:00 Intake Total 1900 ml Balance 1900 ml Intake Oral 1850 ml IV Total 50 ml # Voids 2 General Appearance: Alert, Oriented X3, Cooperative, No acute distress HEENT: Atraumatic, PERRLA, EOMI, Mucous membr. moist/pink Neck: Supple Lungs: Clear to auscultation, Normal air movement Cardiovascular: Regular rate, Normal S1, Normal S2, No murmurs, Gallops, Rubs Abdomen: Normal bowel sounds, Soft, No tenderness Neuro: Cranial nerves 3-12 NL Psych/Mental Status: Mental status NL Medications Current Medications Medications Dose Ordered Sig/Shaan Route Start Time Stop Time Status Last Admin Dose Admin Acetaminophen/ Hydrocodone Bitart 1 tab Q4HP PRN PO 02/26/25 04:30 02/26/25 23:32 1 TAB Ondansetron HCl 4 mg Q4HP PRN IV 02/26/25 04:30 Acetaminophen 650 mg Q6HP PRN PO 02/26/25 04:30 Morphine Sulfate 2 mg Q6HPRN PRN IV 02/26/25 04:30 02/26/25 15:50 2 MG Ergocalciferol 50,000 unit Q7D PO 02/26/25 14:30 02/26/25 15:50 50,000 UNIT Ceftriaxone Sodium 50 ml @ 100 mls/hr DAILY@09 IV 02/27/25 09:00 02/27/25 10:29 100 MLS/HR Potassium Chloride/Dextrose/ Sod Cl 1,000 ml @ 120 mls/hr Q8H20M IV 02/27/25 08:30 Morphine Sulfate 2 mg Q3HPRN PRN IV 02/27/25 08:30 Ondansetron HCl 4 mg Q4HPRN PRN IV 02/27/25 08:30 Pantoprazole Sodium 40 mg DAILY IV 02/27/25 10:00 02/27/25 10:28 40 MG Laboratory Results Laboratory Tests 02/26/25 00:10 Coagulation Test 02/26/25 13:33 Prothrombin Time 10.9 sec (9.3-11.8) Prothrombin Time INR 1.03 (0.9-1.15) Activated Partial Thromboplast Time 28.6 SEC (24.5-34.5) Urinalysis Test 02/26/25 09:00 Urine Color Yellow (Yellow) Urine Clarity Clear (Clear) Urine pH 6.5 (5.0-9.0) Urine Specific [place] 1.027 (1.001-1.035) Urine Protein Trace (Negative) H Urine Ketones Negative (Negative) Urine Blood Negative /uL (Negative) Urine Nitrite Negative (Negative) Urine Bilirubin Negative (Negative) Urine Urobilinogen 4 mg/dL (Negative) H Urine Leukocyte Esterase Negative /uL (Negative) Urine RBC 1 /hpf (0 - 3) Urine Microscopic WBC 1 /HPF (0-3) Urine Squamous Epithelial Cells None seen /hpf (<5) Urine Bacteria None seen /hpf (None Seen) Urine Mucus Few (None Seen) Urine Glucose Normal mg/dL (Normal) Labs and/or images reviewed: Labs reviewed by me Assessment/Plan Assessment/Plan Acute abdominal pain located in the right upper quadrant likely due to cholelithiasis Acute cholecystitis -abdominal ultrasound showed gallbladder sludge but no acute cholecystitis or biliary ductal dilation -HIDA scan showed no evidence of acute cholecystitis -continuing IV ceftriaxone -continue [place]/morphine for pain modulation -continue NS 0.9% at 100 cc/hour -consulted surgery despite imaging studies since the patient clinically tejeda is having positive Crowder's sign and worsening of pain after meals. Status post cholecystectomy, advance diet per surgeon. SAMANTHA likely due to vasomotor nephropathy -initial creatinine 1.43 and BUN 15 -continue IV fluids at 100 cc/hour -monitor kidney function Vitamin-D deficiency -vitamin-D levels were very low at nine -start vitamin-D 17996 units weekly This medical document was created using an electronic medical record system with [employer] direct computerized dictation system. Although this document has been carefully reviewed, there may still be some phonetic and typographical errors. These areas are purely typographical due to imperfections of the software programs, and do not reflect any compromise in the patient's medical care. Plan discussed with: Patient Date of Service: Feb 27, 2025 Billing Provider: JHONY BLANCHARD MD Common Visit Codes: [id number] INP/OBS CARE(HIGH) JHONY BLANCHARD MD Feb 27, 2025 13:31
[2025-02-27 13:58] LABS: Basophils # (auto) 0 10 ^3/uL (0-0.2); Basophils % (auto) 0.1 % (0.0-2.0); Eosinophils # (auto) 0 10 ^3/uL (0-0.8); Eosinophils % (auto) 0.1 % (0.0-7.0); Hematocrit 43.5 % (41.0-53.0); Hemoglobin 14.7 g/dL (13.5-17.5); Lymphocytes # (auto) 0.3 10 ^3/uL (0.4-5.4); Mean Corpuscular Hgb Conc. 33.8 g/dL (32.0-36.0); Mean Corpuscular Volume 94.9 fL (80.0-100.0); Monocytes # (auto) 0.1 10 ^3/uL (0-1.3); Monocytes % (auto) 1.7 % (0.0-12.0); Neutrophils # (auto) 4.7 10 ^3/uL (1.6-8.6); Neutrophils % (auto) 92.1 % (37.0-80.0); Nucleated Red Blood Cells % 0.1 %; Platelet Count (auto) 205 10^3/uL (140-450); Red Blood Cells 4.59 10^6/uL (4.5-5.90); Red Cell Distribution Width 13.3 % (11.8-14.3); White Blood Cell 5.1 10^3/uL (4.4-10.8)
[2025-02-27 14:16] LABS: Alanine Aminotransferase 24 U/L (7-40); Albumin 4.5 g/dL (3.2-4.8); Alkaline Phosphatase 75 U/L (46-116); Anion Gap 9 (5-15); Aspartate Aminotransferase 60 U/L (13-40); BUN/Creatinine Ratio 9.4 (10.0-20.0); Blood Urea Nitrogen 11 mg/dL (9-23); Calcium 9.5 mg/dL (8.7-10.4); Carbon Dioxide 23 mmol/L (20-31); Chloride 104 mmol/L (98-107); Glucose 133 mg/dL (74-106); Potassium 4.3 mmol/L (3.5-5.1); Sodium 136 mmol/L (136-145); Total Protein 7.3 g/dL (5.7-8.2)
[2025-02-27 14:17] LABS: Bilirubin, Total 0.6 mg/dL (0.2-1.0)
[2025-02-28 01:00] VITALS: BP 102/41; PULSE 61; RESP 16; TEMP 97.3; O2SAT 97
[2025-02-28 05:00] VITALS: BP 98/58; PULSE 71; RESP 18; TEMP 97.6; O2SAT 95
[2025-02-28 06:34] LABS: Basophils # (auto) 0 10 ^3/uL (0-0.2); Basophils % (auto) 0.1 % (0.0-2.0); Eosinophils # (auto) 0 10 ^3/uL (0-0.8); Eosinophils % (auto) 0.6 % (0.0-7.0); Hematocrit 41.8 % (41.0-53.0); Hemoglobin 14.1 g/dL (13.5-17.5); Lymphocytes # (auto) 1.1 10 ^3/uL (0.4-5.4); Lymphocytes % (auto) 16.1 % (10.0-50.0); Mean Corpuscular Hemoglobin 31.9 pg (28.0-32.0); Mean Corpuscular Hgb Conc. 33.8 g/dL (32.0-36.0); Mean Corpuscular Volume 94.4 fL (80.0-100.0); Monocytes # (auto) 0.6 10 ^3/uL (0-1.3); Monocytes % (auto) 8.7 % (0.0-12.0); Neutrophils % (auto) 74.5 % (37.0-80.0); Platelet Count (auto) 209 10^3/uL (140-450); Red Blood Cells 4.43 10^6/uL (4.5-5.90); White Blood Cell 6.7 10^3/uL (4.4-10.8)
[2025-02-28 06:47] LABS: Chloride 106 mmol/L (98-107); Potassium 3.5 mmol/L (3.5-5.1); Sodium 138 mmol/L (136-145)
[2025-02-28 06:48] LABS: Anion Gap 9 (5-15); Carbon Dioxide 23 mmol/L (20-31)
[2025-02-28 06:49] LABS: Calcium 9.5 mg/dL (8.7-10.4)
[2025-02-28 06:53] LABS: Glucose 90 mg/dL (74-106)
[2025-02-28 06:54] LABS: BUN/Creatinine Ratio 6.6 (10.0-20.0)
[2025-02-28 06:56] LABS: Bilirubin, Total 0.6 mg/dL (0.2-1.0); Blood Urea Nitrogen 7 mg/dL (9-23)
[2025-02-28] MEDS: metroNIDAZOLE 500MG/100ML 100 ML IV SCH (08:30)
[2025-02-28 09:00] VITALS: BP 115/58; PULSE 60; RESP 17; TEMP 97.7; O2SAT 100
--- NOTE | 2025-02-28 10:46 | DVHPN2 ---
Progress Note Date Seen: Feb 28, 2025 Has the PT tested + for MRSA If YES, has PT been informed?: No Medical Necessity Reason Pt with a Central, PICC or Fol: No Objective vital signs Vital Sign Date Time Temp Pulse Resp B/P (MAP) Pulse Ox O2 Delivery O2 Flow Rate FiO2 02/28/25 09:21 60 17 115/58 02/28/25 09:00 97.7 100 97.7 02/28/25 08:00 Room Air* 0 21 Total Intake and Output 02/27/25 02/27/25 02/28/25 14:59 22:59 06:59 Intake Total 50 ml 500 ml 100 ml Output Total 900 ml Balance 50 ml -400 ml 100 ml medications Current Medications Medications Dose Ordered Sig/Shaan Route Start Time Stop Time Status Last Admin Dose Admin Acetaminophen/ Hydrocodone Bitart 1 tab Q4HP PRN PO 02/26/25 04:30 02/27/25 20:54 1 TAB Ondansetron HCl 4 mg Q4HP PRN IV 02/26/25 04:30 Acetaminophen 650 mg Q6HP PRN PO 02/26/25 04:30 Morphine Sulfate 2 mg Q6HPRN PRN IV 02/26/25 04:30 02/28/25 09:21 2 MG Ergocalciferol 50,000 unit Q7D PO 02/26/25 14:30 02/26/25 15:50 50,000 UNIT Ceftriaxone Sodium 50 ml @ 100 mls/hr DAILY@09 IV 02/27/25 09:00 02/28/25 09:20 100 MLS/HR Potassium Chloride/Dextrose/ Sod Cl 1,000 ml @ 120 mls/hr Q8H20M IV 02/27/25 08:30 02/28/25 01:30 120 MLS/HR Morphine Sulfate 2 mg Q3HPRN PRN IV 02/27/25 08:30 Ondansetron HCl 4 mg Q4HPRN PRN IV 02/27/25 08:30 Pantoprazole Sodium 40 mg DAILY IV 02/27/25 10:00 02/28/25 09:20 40 MG Metronidazole 100 ml @ 100 mls/hr Q8HR IV 02/28/25 08:30 laboratory and microbiology Laboratory Tests 02/28/25 05:21 Test 02/28/25 05:21 Range/Units Serum Glucose 90 74-106 mg/dL Problem List/Assessment/Plan Problem List/Assessment/Plan 02/28/25 PATIENT SEEN BY LAMBERT VILLANUEVA, DOING WELL, WOUNDS CLEANA AND WELL APPROXIMATED, TOLERATING PO LIQUIDS, LABS REVIEWED, DC TOMORROW Plan discussed with: Patient RAFFAELE CROWDER MD Feb 28, 2025 10:46
--- NOTE | 2025-02-28 10:54 | DVHPN2 ---
Subjective Date Seen: Feb 28, 2025 Post op day Post op day: 1 Patient reports: Other (right side abdominal pain, improving better today than yesterday ) General: Normal HNT: Normal Cardiovascular: Normal Respiratory: Normal Gastrointestinal: Normal Genitourinary: Normal Musculoskeletal: Normal Neurological: Normal Objective Vitals Vital Sign Date Time Temp Pulse Resp B/P (MAP) Pulse Ox O2 Delivery O2 Flow Rate FiO2 02/28/25 09:21 60 17 115/58 02/28/25 09:00 97.7 100 97.7 02/28/25 08:00 Room Air* 0 21 Total Intake and Output 02/27/25 02/27/25 02/28/25 15:00 23:00 07:00 Intake Total 50 ml 500 ml 100 ml Output Total 900 ml Balance 50 ml -400 ml 100 ml Medications Current Medications Medications Dose Ordered Sig/Shaan Route Start Time Stop Time Status Last Admin Dose Admin Acetaminophen/ Hydrocodone Bitart 1 tab Q4HP PRN PO 02/26/25 04:30 02/27/25 20:54 1 TAB Ondansetron HCl 4 mg Q4HP PRN IV 02/26/25 04:30 Acetaminophen 650 mg Q6HP PRN PO 02/26/25 04:30 Morphine Sulfate 2 mg Q6HPRN PRN IV 02/26/25 04:30 02/28/25 09:21 2 MG Ergocalciferol 50,000 unit Q7D PO 02/26/25 14:30 02/26/25 15:50 50,000 UNIT Ceftriaxone Sodium 50 ml @ 100 mls/hr DAILY@09 IV 02/27/25 09:00 02/28/25 09:20 100 MLS/HR Potassium Chloride/Dextrose/ Sod Cl 1,000 ml @ 120 mls/hr Q8H20M IV 02/27/25 08:30 02/28/25 01:30 120 MLS/HR Morphine Sulfate 2 mg Q3HPRN PRN IV 02/27/25 08:30 Ondansetron HCl 4 mg Q4HPRN PRN IV 02/27/25 08:30 Pantoprazole Sodium 40 mg DAILY IV 02/27/25 10:00 02/28/25 09:20 40 MG Metronidazole 100 ml @ 100 mls/hr Q8HR IV 02/28/25 08:30 General: Normal, Well developed, Well nourished Head/Eyes: Normal ENT: Normal Neck: Normal, Supple Lungs: Normal, Normal inspection Cardiovascular: Normal, Regular rate and rhythm Abdominal: Soft, Normal inspection, No distension Musculoskeletal: Normal Extremities: Normal Skin: Normal, Normal inspection Neurological: Normal, Normal Speech Labs and Microbiology Laboratory Tests 02/28/25 05:21 Test 02/28/25 05:21 Range/Units Serum Glucose 90 74-106 mg/dL Ass/Plan Labs and/or images reviewed: Labs reviewed by me Problem List Assessment/plan Acute abdominal pain located in the right upper quadrant likely due to cholelithiasis Possible Acute cholecystitis -abdominal ultrasound showed gallbladder sludge but no acute cholecystitis or biliary ductal dilation -HIDA scan showed no evidence of acute cholecystitis -start IV ceftriaxone -continue [place]/morphine for pain modulation -continue NS 0.9% at 100 cc/hour -consulted surgery despite imaging studies since the patient clinically tejeda is having positive Crowder's sign and worsening of pain after meals. -scheduled for cholecystectomy tomorrow a.m. SAMANTHA likely due to vasomotor nephropathy -initial creatinine 1.43 and BUN 15 -continue IV fluids at 100 cc/hour -monitor kidney function Vitamin-D deficiency -vitamin-D levels were very low at nine -start vitamin-D 12648 units weekly Goals of care discussed with the patient at bedside for >25min, FULL CODE Plan discussed with Dr. Coleman Problems(with codes): (1) Right upper quadrant abdominal pain (2) Gallbladder sludge (3) S/P cholecystectomy Assessment/Plan s/p laparoscopic cholecystectomy POD 1 tolerating diet denies nausea , vomiting passing gas, no BM Complaints right side pain PE abdomen soft, non distended, non tedner, appropaitely right side abdominal tenderness Plan: patient to ambulate advance diet as tolerated , discharge in 24 hours per surgery point of view , patient request due to pain stay one more night follow up in surgery clinic in two weeks may shower in 48 hours Prognosis: Excellent Plan discussed with patient, Dr. Clifford Visit Coding Surgery Date of Service if different f: Feb 28, 2025 Billing Provider: RAFFAELE CLIFFORD MD Surgery Visit Codes: [id number] INP/OBS CARE(HIGH) LAMBERT VILLANUEVA PRE PRESS OPERATOR Feb 28, 2025 10:54
[2025-02-28 13:00] VITALS: BP 126/68; PULSE 64; RESP 16; TEMP 97.6; O2SAT 98
--- NOTE | 2025-02-28 14:27 | DVHPNRES ---
Progress Note Date Seen: Feb 28, 2025 Resident Creating Document: SACHA JENIKNS RESIDENT Has the PT tested + for MRSA If YES, has PT been informed?: No Medical Necessity Reason Pt with a Central, PICC or Fol: No Subjective Review of Systems This is a 24-year-old male with no significant past medical history of relevance. The patient presented to the ED due to acute abdominal tenderness localized in the right upper quadrant. Patient describes that since four days ago he started having a right upper quadrant tenderness rated as a 4/10 on the pain scale described as sharp in nature but that the next day worsened to a 7/10 prompting him to come to the ER. Patient denied any nausea or vomiting at that time but did stated that the pain got worse after eating meals. Patient denied alcohol, smoking or drug history. Patient states that the pain is localized in the right upper quadrant and does not radiate to any other quadrant. Patient denied fever/chills, chest pain, shortness of breath or any other symptoms at that time. Initial labs CBC and BNP were grossly unremarkable except for creatinine which was slightly elevated at 1.43 and BUN was 15. Abdominal ultrasound showed gallbladder sludge but no acute cholecystitis or biliary ductal dilation. HIDA scan was ordered which showed no evidence of acute cholecystitis. Patient was admitted for further assessment and management of cholelithiasis. Patient seen and examined at bedside. Patient is alert and oriented in person, place and time. Patient is currently status post cholecystectomy day 1, patient currently tolerating liquid diet but still reporting moderate pain in the right upper quadrant which is expected after surgery. Abdomen was examined and patient has little wounds from laparoscopic surgery but no drainage at this time. Wounds are clean and dry. We will continue IV ceftriaxone and metronidazole we will most likely discharge the patient tomorrow. ROS Constitutional: Denies weight loss, fever and chills. HEENT: Denies changes in vision and hearing. Respiratory: Denies shortness of breath and cough Cardiovascular: Denies chest discomfort or palpitations GI: Reports mild to moderate abdominal discomfort in the right upper quadrant where the wounds of the surgery are located. No vomiting or nausea at this point. : Denies dysuria and urinary frequency. Musculoskeletal: Denies myalgias and joint pain Skin: Denies rash and pruritus. Neurological: Denies dizziness, headache, vision or hearing problems Objective vital signs Vital Sign Date Time Temp Pulse Resp B/P (MAP) Pulse Ox O2 Delivery O2 Flow Rate FiO2 02/28/25 13:00 97.6 64 16 126/68 (87) 98 97.6 02/28/25 08:00 Room Air* 0 21 Total Intake and Output 02/27/25 02/27/25 02/28/25 15:00 23:00 07:00 Intake Total 50 ml 500 ml 100 ml Output Total 900 ml Balance 50 ml -400 ml 100 ml medications Current Medications Medications Dose Ordered Sig/Shaan Route Start Time Stop Time Status Last Admin Dose Admin Acetaminophen/ Hydrocodone Bitart 1 tab Q4HP PRN PO 02/26/25 04:30 02/27/25 20:54 1 TAB Ondansetron HCl 4 mg Q4HP PRN IV 02/26/25 04:30 Acetaminophen 650 mg Q6HP PRN PO 02/26/25 04:30 Morphine Sulfate 2 mg Q6HPRN PRN IV 02/26/25 04:30 02/28/25 09:21 2 MG Ergocalciferol 50,000 unit Q7D PO 02/26/25 14:30 02/26/25 15:50 50,000 UNIT Ceftriaxone Sodium 50 ml @ 100 mls/hr DAILY@09 IV 02/27/25 09:00 02/28/25 09:20 100 MLS/HR Potassium Chloride/Dextrose/ Sod Cl 1,000 ml @ 120 mls/hr Q8H20M IV 02/27/25 08:30 02/28/25 01:30 120 MLS/HR Morphine Sulfate 2 mg Q3HPRN PRN IV 02/27/25 08:30 Ondansetron HCl 4 mg Q4HPRN PRN IV 02/27/25 08:30 Pantoprazole Sodium 40 mg DAILY IV 02/27/25 10:00 02/28/25 09:20 40 MG Metronidazole 100 ml @ 100 mls/hr Q8HR IV 02/28/25 08:30 Examination Physical Examination General: Patient alert and oriented in person, place and time. Patient following commands. HEENT: Normocephalic, atraumatic, moist mucous membranes Respiratory/pulmonary: Clear lungs bilaterally, no associated crackles or wheezes. Cardiovascular: Normal heart sounds S1 and S2 with no associated murmurs Abdomen: Abdomen nondistended, there is tenderness at the right upper quadrant of the abdomen with positive Crowder sign. No masses palpated at this time. Extremities: There is no peripheral edema present at the lower extremities. Peripheral Pulses: 3+ Radial (R). 3+ Radial (L). 3+ Dorsalis pedis (R). 3+ Dorsalis pedis(L) Skin: No rashes or pruritus, there is no sacral edema present at this time. Neurological: Intact cranial nerves with no focal neurologic deficits laboratory and microbiology Laboratory Tests 02/28/25 05:21 Test 02/28/25 05:21 Range/Units Serum Glucose 90 74-106 mg/dL Problem List/Assessment/Plan Problem List/Assessment/Plan Assessment/plan Acute abdominal pain located in the right upper quadrant likely due to cholelithiasis Possible Acute cholecystitis Status post laparoscopic cholecystectomy day 1 -abdominal ultrasound showed gallbladder sludge but no acute cholecystitis or biliary ductal dilation -HIDA scan showed no evidence of acute cholecystitis -continue IV ceftriaxone -continue IV metronidazole -continue [place]/morphine for pain modulation -stop fluids -consulted surgery despite imaging studies since the patient clinically tejeda is having positive Crowder's sign and worsening of pain after meals. -patient is currently status post laparoscopic cholecystectomy day 1 -tolerating full liquid diet, we will progress diet as tolerated -laparoscopic wounds are clean and dry. SAMANTHA likely due to vasomotor nephropathy -initial creatinine 1.43 and BUN 15, today creatinine improved to 1.06 and BUN 7. -stop fluids -monitor kidney function Vitamin-D deficiency -vitamin-D levels were very low at nine -continue vitamin-D 01372 units weekly Plan is to discharge patient home tomorrow Goals of care discussed with the patient at bedside for >25min, FULL CODE Plan discussed with Dr. Blanchard Plan discussed with: Patient My Orders My Orders Orders - SACHA JENKINS Procedure Category Date Status Time Metronidazole PHA 02/28/25 In Process 500mg/100ml (Flagyl 08:30 Date of Service: Feb 28, 2025 Billing Provider: JHONY BLANCHARD MD Common Visit Codes: [id number] INP/OBS CARE(HIGH) SACHA JENKINS Feb 28, 2025 14:27 JHONY BLANCHARD MD Mar 01, 2025 11:12
[2025-02-28 20:00] VITALS: PULSE 71; RESP 17; O2SAT 98
[2025-02-28 21:00] VITALS: BP 114/71; PULSE 71; RESP 17; TEMP 98.5; O2SAT 98
[2025-03-01 00:59] VITALS: BP 117/70; PULSE 56; RESP 18; TEMP 98.6; O2SAT 99
[2025-03-01 05:00] VITALS: BP 104/55; PULSE 50; RESP 16; TEMP 98.4; O2SAT 100
[2025-03-01 07:09] LABS: Chloride 106 mmol/L (98-107); Potassium 3.9 mmol/L (3.5-5.1); Sodium 138 mmol/L (136-145)
[2025-03-01 07:10] LABS: Anion Gap 7 (5-15); Carbon Dioxide 25 mmol/L (20-31)
[2025-03-01 07:11] LABS: Calcium 9.3 mg/dL (8.7-10.4)
[2025-03-01 07:16] LABS: BUN/Creatinine Ratio 6.9 (10.0-20.0); Glucose 86 mg/dL (74-106)
[2025-03-01 07:20] LABS: Blood Urea Nitrogen 8 mg/dL (9-23)
[2025-03-01 09:00] VITALS: BP 112/74; PULSE 67; RESP 18; TEMP 98.8; O2SAT 98
[2025-03-01] MEDS ORDERED: MET500T PO (09:10)
[2025-03-01] MEDS ORDERED: CIPR500T4 PO (09:10)
--- NOTE | 2025-03-01 09:25 | DVHDSRES ---
Discharge Summary Date of Admission Resident Creating Document: SACHA JENKINS RESIDENT Feb 26, 2025 at 04:22 Date of Discharge: Mar 01, 2025 Admitting Diagnosis ACUTE ABDOMINAL PAIN Wounds: Very minimal wounds from laparoscopic cholecystectomy incisions. Labs/Diagnostic Data: Laboratory Results Test 03/01/25 06:27 02/28/25 05:21 02/27/25 13:20 02/26/25 13:33 Sodium Level 138 mmol/L (136-145) Potassium Level 3.9 mmol/L (3.5-5.1) Chloride Level 106 mmol/L (98-107) Carbon Dioxide Level 25 mmol/L (20-31) Anion Gap 7 (5-15) Blood Urea Nitrogen 8 mg/dL (9-23) Creatinine 1.16 mg/dL (0.700-1.30) Glomerular Filtration Rate Calc 91 mL/min (>90) BUN/Creatinine Ratio 6.9 (10.0-20.0) Serum Glucose 86 mg/dL (74-106) Calcium Level 9.3 mg/dL (8.7-10.4) White Blood Count 6.7 10^3/uL (4.4-10.8) Red Blood Count 4.43 10^6/uL (4.5-5.90) Hemoglobin 14.1 g/dL (13.5-17.5) Hematocrit 41.8 % (41.0-53.0) Mean Corpuscular Volume 94.4 fL (80.0-100.0) Mean Corpuscular Hemoglobin 31.9 pg (28.0-32.0) Mean Corpuscular Hemoglobin Concent 33.8 g/dL (32.0-36.0) Red Cell Distribution Width 13.0 % (11.8-14.3) Platelet Count 209 10^3/uL (140-450) Mean Platelet Volume 7.6 fL (6.9-10.8) Neutrophils (%) (Auto) 74.5 % (37.0-80.0) Lymphocytes (%) (Auto) 16.1 % (10.0-50.0) Monocytes (%) (Auto) 8.7 % (0.0-12.0) Eosinophils (%) (Auto) 0.6 % (0.0-7.0) Basophils (%) (Auto) 0.1 % (0.0-2.0) Neutrophils # (Auto) 5.0 10 ^3/uL (1.6-8.6) Lymphocytes # (Auto) 1.1 10 ^3/uL (0.4-5.4) Monocytes # (Auto) 0.6 10 ^3/uL (0-1.3) Eosinophils # (Auto) 0 10 ^3/uL (0-0.8) Basophils # (Auto) 0 10 ^3/uL (0-0.2) Nucleated Red Blood Cells 0.0 % Total Bilirubin 0.6 mg/dL (0.2-1.0) Aspartate Amino Transferase (AST) 60 U/L (13-40) Alanine Aminotransferase (ALT) 24 U/L (7-40) Alkaline Phosphatase 75 U/L (46-116) Total Protein 7.3 g/dL (5.7-8.2) Albumin 4.5 g/dL (3.2-4.8) Prothrombin Time 10.9 sec (9.3-11.8) Prothrombin Time INR 1.03 (0.9-1.15) Activated Partial Thromboplast Time 28.6 SEC (24.5-34.5) Test 02/26/25 09:00 02/26/25 00:10 Urine Color Yellow (Yellow) Urine Clarity Clear (Clear) Urine pH 6.5 (5.0-9.0) Urine Specific [place] 1.027 (1.001-1.035) Urine Protein Trace (Negative) Urine Ketones Negative (Negative) Urine Blood Negative /uL (Negative) Urine Nitrite Negative (Negative) Urine Bilirubin Negative (Negative) Urine Urobilinogen 4 mg/dL (Negative) Urine Leukocyte Esterase Negative /uL (Negative) Urine RBC 1 /hpf (0 - 3) Urine Microscopic WBC 1 /HPF (0-3) Urine Squamous Epithelial Cells None seen /hpf (<5) Urine Bacteria None seen /hpf (None Seen) Urine Mucus Few (None Seen) Urine Glucose Normal mg/dL (Normal) Urine Opiates Screen Neg (NEGATIVE) Urine Fentanyl Screen Neg (NEGATIVE) Urine Barbiturates Screen Neg (NEGATIVE) Urine Phencyclidine Screen Neg (NEGATIVE) Urine Amphetamines Screen Neg (NEGATIVE) Urine Benzodiazepines Screen Neg (NEGATIVE) Urine Cocaine Screen Neg (NEGATIVE) Urine Cannabinoids Screen Neg (NEGATIVE) C-Reactive Protein High Sensitivity 5.54 mg/dL (<1.0) Triglycerides Level 74 mg/dL (< 150) Cholesterol Level 162 mg/dL (< 200) LDL Cholesterol 70 mg/dL (< 100) HDL Cholesterol 70 mg/dL (40-59) Vitamin D 25-Hydroxy 9.6 ng/mL (30.0-100) Other Laboratory Tests 03/01/25 06:27 02/28/25 05:21 Brief Hx & Hospital Course: This is a 24-year-old male with no significant past medical history of relevance. The patient presented to the ED due to acute abdominal tenderness localized in the right upper quadrant. Patient describes that since four days ago he started having a right upper quadrant tenderness rated as a 4/10 on the pain scale described as sharp in nature but that the next day worsened to a 7/10 prompting him to come to the ER. Patient denied any nausea or vomiting at that time but did stated that the pain got worse after eating meals. Patient denied alcohol, smoking or drug history. Patient states that the pain is localized in the right upper quadrant and does not radiate to any other quadrant. Patient denied fever/chills, chest pain, shortness of breath or any other symptoms at that time. Initial labs CBC and BNP were grossly unremarkable except for creatinine which was slightly elevated at 1.43 and BUN was 15. Abdominal ultrasound showed gallbladder sludge but no acute cholecystitis or biliary ductal dilation. HIDA scan was ordered which showed no evidence of acute cholecystitis. Despite of previous imaging showing no acute cholecystitis, the patient clinically tejeda was having positive Corwder sign on physical examination. Patient was having moderate tenderness to palpation on right upper quadrant that was getting worse after meals. Surgery was consulted and performed laparoscopic cholecystectomy without complications. Today, patient is having very minimal tenderness to palpation of the right upper quadrant which is expected after surgery. Patient will be discharged home with ciprofloxacin 500 mg b.i.d. for seven days and metronidazole 500 mg t.i.d. for seven days as well. Patient agrees and understands the plan. We explained to the patient that needs to keep wounds as dry and clean as possible. Patient is tolerating regular diet without complications and is ambulating every 2 hours. Patient denied any symptoms or concerns at this time. ROS Constitutional: Denies weight loss, fever and chills. HEENT: Denies changes in vision and hearing. Respiratory: Denies shortness of breath and cough Cardiovascular: Denies chest discomfort or palpitations GI: Denies abdominal pain, nausea, vomiting and diarrhea. : Denies dysuria and urinary frequency. Musculoskeletal: Denies myalgias and joint pain Skin: Denies rash and pruritus. Neurological: Denies dizziness, headache, vision or hearing problems Physical Examination General: Patient alert and oriented in person, place and time. Patient following commands. HEENT: Normocephalic, atraumatic, moist mucous membranes Respiratory/pulmonary: Clear lungs bilaterally, vesicular murmurs present in almost all lung ley, no associated crackles or wheezes. Cardiovascular: Normal heart sounds S1 and S2 with no associated murmurs Abdomen: Abdomen nondistended, there is very minimal tenderness of the right upper quadrant which is expected after surgery. There are very small laparoscopic wounds that look dry and clean. Extremities: There is no peripheral edema present at the lower extremities. Peripheral Pulses: 3+ Radial (R). 3+ Radial (L). 3+ Dorsalis pedis (R). 3+ Dorsalis pedis(L) Skin: No rashes or pruritus, there is no sacral edema present at this time. Neurological: Intact cranial nerves with no focal neurologic deficits Consults/Reason for consult Surgery for cholecystectomy Operations or Procedures ABDOMINAL ULTRASOUND CLINICAL HISTORY: Right upper quadrant TECHNIQUE: Multiple grayscale and color Doppler ultrasound images were obtained of the abdomen. WID: COMPARISON: None FINDINGS: Liver and Biliary System: Homogeneous echotexture, hepatomegaly measuring 19.5 cm. No focal hepatic observations. No intrahepatic bile duct dilatation. The common duct measures 0.4 cm at the jeff hepatis. The gallbladder is normal caliber containing gallbladder sludge. Pancreas: Partially obscured due to overlying bowel gas. Kidneys: The right kidney is 10.4 cm . No hydronephrosis, increased echogenicity, shadowing stone, or focal lesion. IMPRESSION: 1. Gallbladder sludge. No acute cholecystitis or biliary ductal dilatation. 2. Hepatomegaly. CLINICAL INFORMATION: Rule out cholecystitis. TECHNIQUE: 4.3 mCi of Choletec were administered intravenously. Images of the upper abdomen were obtained at 2 minute intervals up to a total time of 60 minutes. Delayed lateral image obtained at 65 minutes. COMPARISON: Ultrasound dated 02/26/2025 FINDINGS: There is prompt gallbladder visualization. There is prompt excretion of activity from the biliary ductal system into the small bowel. There is no evidence of acute cholecystitis. IMPRESSION: No scintigraphic evidence of acute cholecystitis. Condition at Discharge: Stable Final Diagnosis/Problems List Acute abdominal pain located in the right upper quadrant likely due to cholelithiasis Acute cholecystitis Status post laparoscopic cholecystectomy SAMANTHA likely due to vasomotor nephropathy Vitamin-D deficiency Discharge Disposition: Home Discharge Instruct/Medications Diet: Regular Activity: No Restrictions, As Tolerated Follow Up/Referral: F/U with his PCP in 1 week Medications: Metronidazole 500 mg t.i.d. for seven days Ciprofloxacin 500 mg b.i.d. for seven days Discharge Statement: "Patient was advised to return to the ER or call 911 if any headaches, dizziness, shortness of breath, chest pain, abdominal pain, bleeding, fevers, or worsening of medical condition. Patient was counseled about treatment plan, medications, possible side effects, patientverbalized understanding. All questions were answered to the best of my ability. This discharge took greater then 30 minutes in planning, reviewing documentation, counseling the patient, and discussing with other team members." ASSESSMENT ASSESSMENT Assessment Acute abdominal pain located in the right upper quadrant likely due to cholelithiasis Acute cholecystitis Status post laparoscopic cholecystectomy SAMANTHA likely due to vasomotor nephropathy Vitamin-D deficiency Date of Service: Mar 01, 2025 Billing Provider: RANDI VALDES MD Common Visit Codes: [id number] DISCH DAY >30min SACHA JENKINS RESIDENT Mar 01, 2025 09:25 RANDI VALDES MD Mar 01, 2025 16:48
[2025-03-01] MEDS: ACETAMINOPHEN 325 MG TAB PO PRN (12:00)
[2025-03-01 12:48] VITALS: TEMP 37.1
[2025-03-01 13:00] VITALS: BP_SYST 118; BP_SYST 130; BP_DIAS 67; BP_DIAS 70; PULSE 64; PULSE 77; RESP 16; RESP 18; TEMP 98.6; TEMP 98.7; O2SAT 93; O2SAT 99
== END 2025-03-01 16:30 | disposition home or self-care (01) | DRG 417 ==
LOC: EDBD 23:44 → ER 23:44 → OVERFLOW 02-26 04:22 → WEST WING 02-26 18:03
PROVIDERS: ADMIT Internal Medicine; ATTEND Internal Medicine
PROC: 0FT44ZZ Resection of Gallbladder, Percutaneous Endoscopic Approach (ICD-10-PCS; principal; 2025-02-27 07:18)
DX: K80.12 Calculus of gallbladder with acute and chronic cholecystitis without obstruction (principal); N17.0 Acute kidney failure with tubular necrosis; E55.9 Vitamin D deficiency, unspecified; Z87.891 Personal history of nicotine dependence; Z79.899 Other long term (current) drug therapy
CPT/HCPCS: 36415; 76705; 78226; 80048; 80053; 80061; 80307; 81001; 82247; 82306; 83690; 85025; 85610; 85730; 86141; 86850; 86900; 86901; G0378; J0131; J0690; J1100; J1885; J2003; J2405; J2470; J2704; J3490